=== PATIENT | male | born 1935 | race Caucasian/White ===

== ENCOUNTER 2017-04-06 04:26 | Emergency (ER) | payer MEDICARE, OTHER ==
[2017-04-06] MEDS ORDERED: DILTIAZEM HCL 125 MG/25 ML VIAL IV ONE ×2 (04:48→05:03)
[2017-04-06 05:03] LABS: BLOOD UREA NITROGEN 48 mg/dL (9-20); CALCIUM 9.9 mg/dL (8.4-10.2); CHLORIDE 121 mmol/L (98-107); GLUCOSE 106 mg/dL (70-100); MAGNESIUM 2.6 mg/dL (1.6-2.3); POTASSIUM 3.9 mmol/L (3.5-5.1)
[2017-04-06 05:06] LABS: SODIUM 161 mmol/L (137-145)
[2017-04-06 05:14] LABS: HEMATOCRIT 37.8 % (42.0-54.0); HEMOGLOBIN 12.6 g/dL (14.0-18.0); MEAN CELL VOLUME 91.5 fL (80.0-100.0); MEAN CORPUS. HGB CONCENTRATION 33.3 g/dL (32.0-36.0); MEAN CORPUSCULAR HEMOGLOBIN 30.5 pg (29.0-35.0); MEAN PLATELET VOLUME 11.9 fL (7.4-10.4); PLATELET COUNT 222 X 10^3uL (130-440); RED BLOOD COUNT 4.13 X 10^6uL (4.20-6.10); RED CELL DISTRIBUTION WIDTH 16.3 % (11.5-14.5); WHITE BLOOD COUNT 9.9 X 10^3uL (3.9-10.7)
[2017-04-06 05:15] LABS: BAND% (Manual) 18 % (0.0-1.0); LYMPHOCYTE % (Manual) 7 % (20.0-40.0); MONOCYTE % (Manual) 10 % (2.0-10.0); NEUTROPHIL % (Manual) 65 % (54.0-75.0); PLATELET ESTIMATE ADEQUATE
[2017-04-06 05:18] LABS: TROPONIN I 0.046 ng/mL (0.00-0.034)
[2017-04-06] MEDS ORDERED: WATER IRRIG 1,000 ML BOTTLE ONE (05:26)
--- NOTE | 2017-04-06 06:02 | ER PHYSICIAN DOCUMENTATION ---
Physician Documentation [facility] Name:Hugh Perrin Age:81 yrs Sex:Male :1935 Arrival Date:04/06/2017 Time:04:26 BedTrauma-A Private MD: Charlie Cisneros Disposition: 04/06/17 05:30 Transfer ordered to [facility]. Diagnosis are Hypernatremia, Atrial Fibrillation with Rapid Ventricular Response. - Reason for transfer: Specialty. - Accepting physician is Dr. Arredondo. - Condition is Serious. - Problem is new. - Symptoms have improved. COBRA Form completed? Transfer - Mode of Transportation Ambulance HPI: 04/06 05:01 This 81 yrs old Male presents to ER via EMS with complaints of Altered Mental jm Status. 05:01 The patient presents with sleepiness. Onset: The symptom(s)/episode began/occurred 3 jm day(s) ago, and became worse today. Possible causes: possible low Na. Associated signs and symptoms: Pertinent negatives: abdominal pain, headache, lightheadedness. Current symptoms: In the emergency department the patient's symptoms are unchanged from the initial presentation. Patient's baseline: The patient has a previous history of throat Ca, s/p resection and trach. . The patient has experienced a previous episode. The patient has not recently seen a physician. Pt here b/c his called 911 and she thought he was too sleepy. Apparently they went up on the tube feeds, but did not adjust the amount of free water. The last time he was like this he had high sodium. Historical: - Allergies: No known drug Allergies; - Tetanus: unknown. - Ebola Screening: : Patient negative for fever greater than or equal to 101.5 degrees Fahrenheit, and additional compatible Ebola Virus Disease symptoms. Patient denies exposure to infectious person. Patient denies travel to an Ebola-affected area in the 21 days before illness onset. No symptoms or risks identified at this time. . - Immunization history: Flu Vaccine None. - Social history: Smoking status: Patient states was never smoker of tobacco. ROS: 05:04 Constitutional: Negative for fatigue, fever. jm 05:04 ENT: Negative for nasal discharge, rhinorrhea. 05:04 Neck: Negative for stiffness, tenderness. 05:04 Cardiovascular: Negative for chest pain. 05:04 Respiratory: Negative for cough, shortness of breath. 05:04 Abdomen/GI: Negative for abdominal pain, nausea, vomiting, diarrhea. 05:09 MS/extremity: Negative for rash, swelling. 05:09 Skin: Negative for swelling. 05:09 Neuro: Positive for Negative for dizziness. 05:09 Psych: Negative for drug dependence, alcohol dependence. 05:09 All other systems are negative. Exam: 05:09 Constitutional: The patient appears alert, awake. 05:09 Eyes: Periorbital structures: appear normal, Conjunctiva: normal. 05:09 Neck: External neck: is normal, trach in place that CDI. 05:09 Cardiovascular: Rate: tachycardic, Rhythm: irregularly irregular. 05:09 Respiratory: Respirations: normal, Breath sounds: are normal. 05:09 Abdomen/GI: Bowel sounds: normal, Palpation: abdomen is soft and non-tender. 05:09 Musculoskeletal/extremity: Pulses: are normal with no appreciated deficits, Sensation intact. 05:09 Skin: Appearance: Color: pink, Turgor: is poor. 05:09 Neuro: Mentation: is normal, Memory: is normal. 05:09 Psych: Behavior/mood is pleasant, cooperative, Affect is calm. Vital Signs: 04:57 BP 83 / 52; Pulse 167; Resp 24; Temp 98.3; Pulse Ox 94% on NC; Weight 72.57 kg; Height bw2 5 ft. 6 in. (167.64 cm); Pain 0/10; 05:16 BP 107 / 53 (auto/); Pulse 160; bw2 05:30 BP 110 / 75 (auto/); bw2 05:35 BP 110 / 75; Pulse 149; Resp 24; Pulse Ox 99% on 2 lpm NC; bw2 05:45 BP 117 / 80 (auto/); Pulse 145; bw2 04:57 Body Mass Index 25.82 (72.57 kg, 167.64 cm) 2 MDM: 04:44 Patient medically screened. 05:08 EKG attached [facility] 05:12 Differential Diagnosis: electrolyte abnormality, volume depletion. Data reviewed: vital jm signs, nurses notes, lab test result(s), EKG, radiologic studies, and as a result, I will *Transfer Patient. Counseling: I had a detailed discussion with the patient and/or guardian regarding: the historical points, exam findings, and any diagnostic results supporting the discharge/admit diagnosis, lab results. 05:16 Test interpretation: by ED physician or midlevel provider: plain radiologic studies, ECG. ECG:. Medication response: The patient's symptoms have improved, cardizem w 2LNS. ED course: Pt w AMS expressed to me as some mild agitation (picking at tubes and such). says this is not him, but he cannot speak and is fully awake. Labs show NA of 161, which his was excepting to come back elevated. Trop mildly up, which I believe is demand ischemia. No signs of infection. Pt given 2LNS and 2 doses of 10mg of dilt w gtt of 10mg/hour w minimal improvement of BP. . 05:25 Physician consultation: Dr. Arredondo was called at 05:15, was contacted at 05:20, regarding patient's condition, and will see patient. 04/06 05:06 Order name: BASIC METABOLIC PANEL; Complete Time: 05:21 EDNE 04/06 05:06 Order name: MAGNESIUM; Complete Time: 05:21 EDNE 04/06 05:15 Order name: CBC W/ MANUAL DIFFERENTIAL; Complete Time: 05:21 EDMS 04/06 05:19 Order name: TROPONIN I; Complete Time: 05:21 EDNE 04/07 14:09 Order name: CHEST; [place] [id number] [facility] / 04:51 Order name: Pulse Ox Continuous; Complete Time: 05:02 04/06 04:51 Order name: Continuous Cardiac Monitoring; Complete Time: 05:02 04/06 04:51 Order name: 12-lead EKG; Complete Time: 05:01 EC:16 Rhythm is irregularly irregular, A fib. QRS [place] is Normal. No Q waves. No ST changes jm noted. Dispensed Medications: 04:40 Drug: Diltiazem 10 mg/hr; Route: IV; Rate: calculated rate; Site: left forearm; 2 06:01 Follow up: IV Status: Completed infusion; Infusing continued upon transfer bw2 04:40 Drug: NS 0.9% 1000 ml; Route: IV; Rate: bolus; Site: right forearm; 2 06:01 Follow up: IV Status: Completed infusion 2 04:45 Drug: Diltiazem 10 mg; Route: IVP; Infused Over: 5 mins; Site: left femoral; bw2 06:01 Follow up: Response: No adverse reaction bw2 04:45 Drug: NS 0.9% 1000 ml; Route: IV; Rate: bolus; Site: right forearm; bw2 06:01 Follow up: IV Status: Completed infusion bw2 Signatures: Charlie Howard MD MD jm Wisely, Beth bw2
--- NOTE | 2017-04-06 06:02 | ER NURSING DOCUMENTATION ---
Nurse's Notes [facility] Name:Hugh Perrin Age:81 yrs Sex:Male :1935 Arrival Date:04/06/2017 Time:04:26 BedTrauma-A Private MD: Diagnosis:Hypernatremia;Atrial Fibrillation with Rapid Ventricular Response Presentation: 04/06 04:53 Presenting complaint: EMS states: called to scene for shortness of breath. pt bw2 states that he has not been acting himself for 2 days. pt in afib RVR at scene. pt given 15 mg cardizam. Transition of care: patient was not received from another setting of care. 04:53 Method Of Arrival: EMS: 400 bw2 04:53 Acuity: PARKER 2 bw2 Triage Assessment: 04:56 General: Appears distressed, Behavior is anxious. Pain: Denies pain. EENT: Neuro: No bw2 deficits noted. Respiratory: Sputum is thick, trach in place. GI: Historical: - Allergies: No known drug Allergies; - Tetanus: unknown. - Ebola Screening: : Patient negative for fever greater than or equal to 101.5 degrees Fahrenheit, and additional compatible Ebola Virus Disease symptoms. Patient denies exposure to infectious person. Patient denies travel to an Ebola-affected area in the 21 days before illness onset. No symptoms or risks identified at this time. . - Immunization history: Flu Vaccine None. - Social history: Smoking status: Patient states was never smoker of tobacco. Screenin:58 Infectious Disease Risk None. Abuse screen: Denies threats or abuse. Nutritional bw2 screening: No deficits noted. Assessment: 04:58 See Triage Assessment done by same RN. bw2 05:19 Respiratory: Breath sounds are coarse Breath sounds with crackles bilaterally. bw2 Vital Signs: 04:57 BP 83 / 52; Pulse 167; Resp 24; Temp 98.3; Pulse Ox 94% on NC; Weight 72.57 kg; Height bw2 5 ft. 6 in. (167.64 cm); Pain 0/10; 05:16 BP 107 / 53 (auto/); Pulse 160; bw2 05:30 BP 110 / 75 (auto/); bw2 05:35 BP 110 / 75; Pulse 149; Resp 24; Pulse Ox 99% on 2 lpm NC; bw2 05:45 BP 117 / 80 (auto/); Pulse 145; bw2 04:57 Body Mass Index 25.82 (72.57 kg, 167.64 cm) bw2 ED Course: 04:27 Patient arrived in ED. ma1 04:43 Zuleyka Guillen is Primary Nurse. bw2 04:44 Charlie Howard MD is Attending Physician. ruddy 04:51 EKG done. (by ED staff). bw2 04:52 Port Xray Completed. saul 04:55 Triage completed. bw2 04:58 Valuables Given to family. watch given to . Patient has correct armband on for bw2 positive identification. Placed in gown. Side rails up X2. universal grinder set up operator on. Pulse ox on. NIBP on. 04:59 Inserted peripheral IV: 18 gauge in right forearm. bw2 04:59 Inserted peripheral IV: 20 gauge in left forearm. bw2 05:08 EKG attached bw2 Administered Medications: 04:40 Drug: Diltiazem 10 mg/hr; Route: IV; Rate: calculated rate; Site: left forearm; bw2 06:01 Follow up: IV Status: Completed infusion; Infusing continued upon transfer bw2 04:40 Drug: NS 0.9% 1000 ml; Route: IV; Rate: bolus; Site: right forearm; bw2 06:01 Follow up: IV Status: Completed infusion bw2 04:45 Drug: Diltiazem 10 mg; Route: IVP; Infused Over: 5 mins; Site: left femoral; bw2 06:01 Follow up: Response: No adverse reaction bw2 04:45 Drug: NS 0.9% 1000 ml; Route: IV; Rate: bolus; Site: right forearm; bw2 06:01 Follow up: IV Status: Completed infusion bw2 Intake: 06:00 IV: 3000ml; Total: 3000ml. bw2 Output: 06:00 Urine: 150ml (Voided); Total: 150ml. bw2 Outcome: 05:30 ER care complete, transfer ordered by . ruddy 05:35 Transferred: Patient will be transferred to: [facility]. Facility bw2 Acceptance Time: April 06, 2017 at 05:20 Patient's face sheet was faxed to accepting facility. Face Sheet included patient's name, address, age, gender, contact information and insurance information. Patient will be transported by: [facility] ground. Report called to: Lizzette HICKS Nurse and Physician Charting and Notes were sent to Accepting Facility. All tests and/or procedures with results, if applicable, were sent to accepting facility. 05:35 Condition: unchanged 05:35 Discharge instructions given to patient, family, Instructed on need for transfer Demonstrated understanding of instructions. 06:02 Patient left the ED. bw2 Signatures: Charlie Howard MD MD jm Abbott, [facility] Yokasta Messina ma
--- NOTE | 2017-04-07 13:23 | RADIOLOGY REPORT ---
A limited single portable view of the chest, without prior films for comparison , demonstrates tracheostomy tube and left Mediport. Heart and vessels appear unremarkable. Probable 10 cm hiatal hernia is noted. Stringy scarriung and/or atelectasis is noted in the right upper lung field. No fluid or pneumothorax is seen. IMPRESSION: 1. Tubes and catheter as described. 2. Probable hiatal hernia. 3. Scarring and/or atelectasis in the right upper lung field. MTDD
== END 2017-04-06 06:02 | disposition short-term general hospital (02) ==
LOC: ER 04:26
DX: E87.0 Hyperosmolality and hypernatremia (principal); I48.91 Unspecified atrial fibrillation; R41.82 Altered mental status, unspecified; E86.0 Dehydration; Z85.818 Personal history of malignant neoplasm of other sites of lip, oral cavity, and pharynx; Z93.0 Tracheostomy status; Z99.89 Dependence on other enabling machines and devices; Z99.81 Dependence on supplemental oxygen; Z74.3 Need for continuous supervision
CPT/HCPCS: 71010; 80048; 83735; 84484; 85007; 85027; 93005; 93010; 96365; 96375; 99285; A0425; A0427; A4217